=== PATIENT | male | born 1935 | race Caucasian/White ===

== ENCOUNTER 2024-02-15 10:52 | Day surgery (SDC) | payer MEDICARE, OTHER, SELFPAY ==
[2024-02-15] VITALS (17 sets, daily range): BP systolic 158–189; BP diastolic 77–116; BMI 29.0
[2024-02-15 12:43] LABS: ACT-LR - POC 108 Seconds (116-155)
[2024-02-15 12:54] LABS: ACT-LR - POC 276 Seconds (116-155)
--- NOTE | 2024-02-15 13:57 | ITS.CL.CATH ---
[facility] - Catheterization
Cardiac Catheterization
Procedure Report:
CARDIAC CATHETERIZATION REPORT
Date of Procedure: 02/15/2024
Referring: Mayank Arzate DO
Indication: Episode of angina with ischemic stress test
HEMODYNAMIC DATA
AO: 169/76
LV: 169/21
LEFT VENTRICULOGRAPHY: Not performed
CORONARY ANGIOGRAPHY
Dominance: Left
Left Main: Normal
LAD: Eccentric proximal LAD stenosis of up to 80% severity. This lesion spans the takeoff of the large first septal sample stitcher and just distal to the takeoff of a medium sized D1. There is focal 60% mid LAD stenosis distal to the takeoff of D3 and
diffuse mild disease extending through the distal LAD to the apex.
Circumflex: Medium sized ramus intermedius has mild luminal disease. There is smooth 30% ostial circumflex stenosis. OM1 is subtotally to totally occluded in the midportion with bridging collateral filling of the distal vessel. OM 2 is tiny. The
first left posterolateral branch is large with 70% proximal and 80% mid stenoses. A small LPL 2 has mild disease. There is subtotal occlusion of the left PDA with faint antegrade filling of a small to medium sized LPDA
RCA: Nondominant vessel
FloWire assessment: We attempted unsuccessfully to evaluate the proximal LAD lesion with FloWire. Multiple guide catheters were advanced from the right radial artery and could not be engaged into the left main coronary artery. All of these
catheters were barely able to reach the aortic root including EBU 3.75, JL 4, and EBU 3.5. It became clear that we needed to transition to a femoral approach. Access was then obtained in the right femoral artery using a micropuncture technique.
An EBU 3.75 guide was successfully advanced to the left coronary ostium. A [place] flow wire was advanced into the LAD but could not cross the lesion. I became concerned that we might dissect the LAD and cause abrupt closure and we abandoned
attempts to get a [place] flow wire through the lesion. A BMW wire was successfully advanced through the lesion with significant effort. A 3.5 x 15 Xience MAGGIE was deployed at 14 parul then postdilated with a 3.5 NC trek to 17 parul. There was 50%
stenosis at the distal margin of the stent consistent with either intramural hematoma or possible dissection. This did not respond to intracoronary nitroglycerin. Accordingly, a 3.25 x 8 Xience MAGGIE was deployed in an overlapping fashion to 15 parul
then postdilated with a 3.5 NC trek to 14 parul. The final angiographic result was outstanding.
This was a complex and difficult intervention required multiple wires and guide catheters as well as prolonged fluoroscopy time
Closure Device: 6 [place] Angio-Seal RFA and R band for right radial artery.
Radiation (mGy): 851
DAP (cm2.Gy): 61.4
Fluoroscopy time: 23.8 minutes
CONCLUSIONS
1: Systemic hypertension
2: Mildly elevated LVEDP
3. Multivessel CAD as described
4. Successful stenting of proximal LAD with overlapping 3.5 x 15 and 3.25 x 8 Xience [place] drug-eluting stents with outstanding angiographic result
5. I recommend medical therapy for residual CAD. If he has symptoms refractory to medical therapy we could perform multisegment intervention in the circumflex artery
6. Recommend dual antiplatelet therapy for 6-12 months then aspirin monotherapy
Copy to: Andrea Stoner DO, Cali Stewart DO
Micah Etienne MD, [facility], [facility]
[2024-02-15] MEDS: NSS 1000 IV ×2 (14:51→14:52)
[2024-02-15 15:20] LABS: ACT-LR - POC > 397 Seconds (116-155)
--- NOTE | 2024-02-15 15:45 | PTCARENOTE ---
Rec'd report from Pat[facility] in the [facility]; Rec'd pt AAOx3 w/no c/o CP or SOB. R radial band in place w/no signs or symptoms of bleeding or hematoma; Area under band w/some dark purple ecchymosis. R femoral site w/dressing C/D/I w/no signs or symptoms
of bleeding or hematoma. Good R radial pulse & positive bilat pedal pulses. VS completed w/BP elevated at 173/94, HR in the 50's; pt SB w/L BBB on telemetry monitoring. Admission assessment completed w/ at bedside.
[place] BP's and continued to be elevated. Cardiac POLICY INTERN, Leanna Henriquez notified & orders rec'd for STAT IV hydralazine & PRN IV hydralazine every 6hrs for SBP>160. Hydralazine administered as ordered. Plan of care ongoing.
[2024-02-15] MEDS: APRESOLINE 5 MG IV (16:39)
[2024-02-15] MEDS: NORVASC 5 MG PO (18:28)
[2024-02-15] MEDS: CRESTOR 5 MG PO (18:28)
--- NOTE | 2024-02-15 19:16 | PTCARENOTE ---
Dr Etienne made aware of pt's HR dropping to upper 30's briefly x2. Continue to monitor pt overnight.
--- NOTE | 2024-02-16 02:17 | PTCARENOTE ---
Pt without complaints. R groin and R radial CDI. + pulses. SB w/BBB on the monitor. BPs 150s- 170s / 80s. HR in the 60s. ambulating in room as a x1 assist and RW.
[2024-02-16 03:50] LABS: Hematocrit 37.7 % (39.0-52.0); Hemoglobin 12.8 g/dL (13.0-18.0); Mean Corpuscular Hgb 31.4 pg (27.0-31.0); Mean Corpuscular Volume 92.4 fL (80.0-94.0); Mean Platelet Volume 10.1 fL (7.4-10.4); Platelet Count 212 10^3/uL (130-400); Red Blood Cell Count 4.08 10^6/uL (4.70-6.10); Red Cell Dist. Width 12.9 % (11.5-14.5); White Blood Cell Count 10.1 10^3/uL (4.8-10.8)
[2024-02-16 03:51] VITALS: BP 155/84
[2024-02-16 04:31] LABS: Blood Urea Nitrogen 14 mg/dl (9-20); Calcium 8.8 mg/dl (8.4-10.2); Carbon Dioxide 27 mmol/L (22-30); Chloride 105 mmol/L (98-107); Estimated Creatinine Clearance 54 ml/min; Glucose 96 mg/dl (70-99); HDL Cholesterol 55 mg/dl; LDL Cholesterol, Calculated 29 mg/dl; Potassium 4.4 mmol/L (3.5-5.1); Sodium 140 mmol/L (135-145); Total Cholesterol 99 mg/dl (50-199); Triglyceride 76 mg/dl (10-149); Very Low Density Lipoprotein 15 mg/dl (0-30); eGFR > 60.00
--- NOTE | 2024-02-16 07:28 | W.PN.UPDATE ---
Update Note
Progress Note Update
Quiet night
No CP
ECG SR long first degree AVB, LBBB
Labs pending
Telem: SR, occ VPDs, some asymptomatic bradycardia
HTN problematic- We started amlodipine 5mg and will increase lisinopril to 20mg (now 10). I told him to check home BPs daily and bring readings to all physician visits
LDL <40 on crestor 5.
I reinforced importance of compliance with DAPT
Home this AM - f/u with Dr Stoner
[2024-02-16 07:34] VITALS: BP 155/79
[2024-02-16] MEDS: NORVASC 5 MG PO (08:53)
[2024-02-16] MEDS: IMDUR (EXTENDED RELEASE) 30 MG PO (08:53)
[2024-02-16] MEDS: PROSCAR 5 MG PO (08:53)
[2024-02-16] MEDS: LOW STRENGTH ASPIRIN 81 MG PO (08:53)
[2024-02-16] MEDS: ZESTRIL 20 MG PO (08:53)
[2024-02-16] MEDS: PLAVIX 75 MG PO (08:53)
[2024-02-16] MEDS: FLOMAX 0.400000000000000022 MG PO (08:53)
--- NOTE | 2024-02-16 10:27 | W.DS.TRANS ---
DC Summary - Carbonator
-
Discharge Instructions:
Discharge Diagnosis/Procedures Angioplasty with stent to LAD x2
Diet Low Cholesterol
Driving Restrictions No driving for 24 hours
Blood Work Check BMP in 1 week
Other Services Cardiac Rehab
Instructions:
Stand-Alone Forms: DC Instructions- Cath/EP Lab
Changes to Home Medications: Yes
Discharge Medications:
DC Medications w/original date entered in [employer]
aspirin 81 mg chewable tablet 81 mg PO DAILY 02/15/24
finasteride 5 mg tablet 5 mg PO DAILY 02/15/24
isosorbide mononitrate 30 mg tablet,extended release 24 hr 30 mg PO DAILY 02/15/24
rosuvastatin 5 mg tablet 5 mg PO DAILY 02/15/24
tamsulosin 0.4 mg capsule 0.4 mg PO DAILY 02/15/24
amlodipine 5 mg tablet 5 mg PO DAILY #90 tabs 02/16/24
clopidogrel 75 mg tablet 75 mg PO DAILY #90 tabs 02/16/24
lisinopril 10 mg tablet 20 mg (2 x 10 mg) PO DAILY #90 tabs 02/16/24
nitroglycerin 0.4 mg sublingual tablet 0.4 mg sublingual [id number] PRN chest pain #25 tabs 02/16/24
Home Medication Changes
new to plavix, amlodipine, nitro, increased lisinopril
Pending Results: No
--- NOTE | 2024-02-16 11:50 | PTCARENOTE ---
Went over discharge instructions with patient and patient's . Removed IV and Telemetry pack.
--- NOTE | 2024-02-16 11:58 | CM ---
CM following for DC planning needs.
Met w/ patient at bedside to complete initial assessment. Pt. is anticipating DC and is preparing to leave. Pt. offers no concerns or needs at this time.
He is functionally indep. at baseline and resides w/ spouse.
Plan is for home, no needs.
== END 2024-02-16 12:20 | disposition home or self-care (01) ==
LOC: CATH 10:52
PROVIDERS: Nurse Practitioner Adult Health; ATTENDING PHYSICIAN Internal Medicine Cardiovascular Disease; FAMILY PHYSICIAN Family Medicine; OTHER PHYSICIAN Internal Medicine Cardiovascular Disease
DX: I25.119 Atherosclerotic heart disease of native coronary artery with unspecified angina pectoris (principal); Z79.02 Long term (current) use of antithrombotics/antiplatelets; Z79.82 Long term (current) use of aspirin; I10 Essential (primary) hypertension; Z79.899 Other long term (current) drug therapy; I48.92 Unspecified atrial flutter; I44.7 Left bundle-branch block, unspecified; Z86.73 Personal history of transient ischemic attack (TIA), and cerebral infarction without residual deficits; I25.5 Ischemic cardiomyopathy; G47.33 Obstructive sleep apnea (adult) (pediatric); N40.0 Benign prostatic hyperplasia without lower urinary tract symptoms
CPT/HCPCS: 80048; 80061; 85027; 85347; 93005; 93458; 93571; C1725; C1760; C1769; C1874; C1894; C9600; Q9967